=== PATIENT | male | born 1985 | race Caucasian/White ===

== ENCOUNTER 2024-12-12 11:03 | Outpatient (AMB) | payer MEDICAID, SELFPAY ==
--- NOTE | 2024-12-12 11:14 | HO.SPINEOV ---
Vital Signs 12/12/24 11:15 Height 6 ft Weight 205 lb BMI 27.8 Intake Visit Reasons: LBP Intake Note: Mr. Mojica is here today c/o Sciatica pain down Left leg. [employer] Required: No Allergies No Known Allergies Allergy (Verified 12/12/24 11:15) Physical Exam Vital Signs: BMI result Body Mass Index 27.8 Assessment & Plan Assessment & Plan (1) Lumbar radiculopathy: Code(s): M54.16 - Radiculopathy, lumbar region Category: Medical Plan Dear ADDIE Nails, Thank you for referring Jaya to our office today. He is a pleasant 39-year-old male who comes in today with a chief complaint of predominantly left leg pain. He reports this has been ongoing for the past 4 years. He identifies an initial inciting incident of -lifting at the gym in which he felt a pop in his low back. He feels that after some rest and physical therapy this issue resolved. Subsequently, he returned to lifting at the gym and had essentially the same thing happen a 2nd time. When describing the shooting pain down his left leg he runs his hand over the low back down the posterior buttocks and across the lateral thigh. He states that occasionally it will continue down to his lateral calf terminating before the foot. He denies any numbness/tingling/weakness associated with the pain. He reports that he has had injections into his piriformis muscle in the past which did provide him with temporary relief. Unfortunately, this series of injections is confounded by the fact that he was also injecting himself with peptides in an effort to self heal the injury. Therefore, it is not clear that the injection itself was actually helpful. He is not currently taking any medications for the pain, but was recently prescribed a course of prednisone by our colleagues at [facility]. PMH: Insomnia, piriformis muscle inflammation. Social hx: The patient does not smoke, reports no substance use. Medications: Ambien for sleep. Allergies: NKDA. Physical exam: The patient has 5/5 strength in his upper and lower extremities. He ambulates well and rises from a seated position without difficulty. He has no significant sensational deficits on examination. His reflexes are 2+ intact. (-) bilateral straight leg raise, (-) clonus, (-) Maradiaga's. Imaging review: MRI of the lumbar spine completed at [facility] shows moderate-severe left-sided, and mild-moderate right-sided foraminal stenosis at L4-5 due to a posterior disc bulge. There is also mild bilateral foraminal stenosis at L3-4. Impression: Jaya is a pleasant 39-year-old male who comes in today with a chief complaint of left leg pain. He reports this has been ongoing for the past 4 years and has wax/wane in intensity since his initial injury which occurred while lifting. His story and MRI are most consistent with an acute disc herniation which partially resolved. This may have occurred at both L3-4, and L4-5. I believe the bulk of his leg pain is likely coming from the moderate-severe left-sided foraminal stenosis at L4-5. This would best explain his symptoms. I encouraged him to follow up with [facility] to discuss the possibility of injections at this level. He is more than welcome to make a follow-up appointment with our office to discuss the possibility of foraminotomy or decompression at this level, but I encouraged him to pursue all potential conservative treatments before considering this. Thank you for allowing us to care for your patient. The total time spent with this visit with this patient was 45 minutes reviewing history, physical exam, MRI imaging review, and implementation of treatment plan or further diagnostic testing Bao Medina MD,PhD [facility] Coding Level of Care Code New Pt Level 4 (48665) Diagnoses Lumbar radiculopathy M54.16
[2024-12-12 11:15] VITALS: BMI 27.8
--- OUTSIDE RECORDS SUMMARY | 2024-12-12 11:46 | XMS_ITS | Data Portability ---
Author Organization [facility], [facility] Address [address] [place] [address] Care Team Providers Care Terminal Operations Manager Name Role Phone JUAN PABLOLAUREN MARTINEZ Primary Care Provider [facility] O rthopedic Surgeon SPINE AND SPORTS OTHER Assessment Encounter Date Assessment Date Assessment LastModified by Organization Details LastModified Time 09/07/2022 09/07/2022 After a discussion of treatment options, which included consideration of best practices and patient preferences, the following treatment plan and objectives were adopted: pkeough Not available 09/07/2022 11:12:00 05/18/2023 05/18/2023 After a discussion of treatment options, which included consideration of best practices and patient preferences, the following treatment plan and objectives were adopted: pkeough Not available 05/18/2023 10:50:24 11/20/2023 11/20/2023 After a discussion of treatment options, which included consideration of best practices and patient preferences, the following treatment plan and objectives were adopted: pkeough Not available 11/20/2023 14:29:31 03/05/2024 03/05/2024 After a discussion of treatment options, which included consideration of best practices and patient preferences, the following treatment plan and objectives were adopted: pkeough Not available 03/05/2024 15:14:21 10/03/2024 10/03/2024 After a discussion of treatment options, which included consideration of best practices and patient preferences, the following treatment plan and objectives were adopted: pkeough Not available 10/03/2024 11:10:58 Plan of Treatment Reminders Order Date Submit Date Provider Last Modified By Organization Details Last Modified Time Details Appointments None recorded. Lab HIV (1+2) antibodies, EIA, serum, reflex HIV-1 western blot (WB) 2021 [facility], [address] [place] [address], [id number], 18:06:30 RPR (rapid plasma reagin), serum 2021 [facility], [address] [place] [address], [id number], 09:45:33 CT + NG DNA, PCR, unspecified specimen 2021 [facility], [address] [place] [address], [id number], 13:55:54 hepatitis C virus Ab, serum 2021 [facility], [address] [place] [address], [id number], 18:06:37 HBsAg (hepatitis B surface Ag), serum 2021 [facility], [address] [place] [address], [id number], 18:06:43 testosteron e, bioavailabl e + free + total, serum 2021 [facility], [address] [place] [address], [address], 18:06:34 estradiol, serum 2021 [facility], [address] [place] [address], [address], 18:06:38 lh (luteinizin g hormone), serum 2021 [facility], [address] [place] [address], [id number], 10:43:33 igf-1 (insulin-li ke growth factor), serum 2021 [facility], [address] [place] [address], [address], 18:06:32 dhea, serum 2021 [facility], [address] [place] [address], [address], 18:06:41 lipid panel, serum 2021 [facility], [address] [place] [address], [address], 15:01:54 CMP, serum or plasma 2021 [facility], [address] [place] [address], [id number], 15:01:53 FSH (follicle-s timulating hormone), serum 2021 [facility], [address] [place] [address], [address], 10:43:33 CBC 2021 [facility], [address] [place] [address], [address], 12:48:09 Referral physical medicine and rehabilitat ion referral 2023 024 [facility] Geoff Persaud MD, [address], [place], [address], 5 11:13:00 Procedures None recorded. Surgeries None recorded. Imaging None recorded. Medication Orders zolpidem 10 mg tablet 2023 024 [id number], [address] [facility], [place], [address], 4 11:20:50 alprazolam 0.25 mg tablet 2023 024 [id number], [address] [place], [address], 4 15:15:52 tadalafil 10 mg tablet 2022 023 [facility], [address] [place], [address], 3 10:50:49 temazepam 7.5 mg capsule 2022 023 [id number] [address] [place], [address], 4 14:19:01 Patient TargetsNo targets recorded. Patient Instructions Encounter Date Encounter Id Patient Instructions Last Modified By Organization Details Last Modified Time 11/20/2023 [id number] Well Visit, Ages 18 to 65: Care Instructions [email or web address] Not available 11/20/2023 14:34:20 Reason for Referral Physical Medicine And Rehabi litation Referral for Lumbar radiculopathy Referring Physician: Lauren Meeks, Family Medicine, Encounter Date: 10/03/2024 Results Created Date Observation Date Name Description Value Unit Range Abnormal Flag Note LastModifiedBy Organization Detail LastModifiedTime 09/14/2009/14/2022 CBC WBC 3.53 K/? ? ?L 4.23-9 .07 low Not Available [address], [address], 09/14/2022 12:48:09 09/14/20 22 09/14/2022 CBC RBC 4.96 M/? ? ?L 4.63-6 .08 Not Available [address], [address], 09/14/2022 12:48:09 09/14/20 22 09/14/2022 CBC HGB 16.0 g/dL 13.7-1 7.5 Not Available [address], [address], 09/14/2022 12:48:09 09/14/20 22 09/14/2022 CBC HCT 48.4 % 40.1-5 1.0 Not Available [address], [address], 09/14/2022 12:48:09 09/14/20 22 09/14/2022 CBC MCV 97.6 fL 79.0-9 2.2 high Not Available [address], [address], 09/14/2022 12:48:09 09/14/20 22 09/14/2022 CBC MCH 32.3 pg 25.7-3 2.2 high Not Available [address], [address], 09/14/2022 12:48:09 09/14/20 22 09/14/2022 CBC MCHC 33.1 g/dL 32.3-3 6.5 Not Available [address], [address], 09/14/2022 12:48:09 09/14/20 22 09/14/2022 CBC plt 172 K/? ? ?L 163-33 7 Not Available [address], [address], 09/14/2022 12:48:09 09/14/20 22 09/14/2022 CBC MPV 10.9 fL 9.4-12 .4 Not Available [address], [address], 09/14/2022 12:48:09 09/14/20 22 09/14/2022 CBC neut% 45.4 % 34.0-6 7.9 Not Available [address], [address], 09/14/2022 12:48:09 09/14/20 22 09/14/2022 CBC neut# 1.60 1.78-5 .38 low Not Available [address], [address], 09/14/2022 12:48:09 09/14/20 22 09/14/2022 CBC lymph % 35.4 % 21.8-5 3.1 Not Available [address], [address], 09/14/2022 12:48:09 09/14/20 22 09/14/2022 CBC lymph # 1.25 K/? ? ?L 1.32-3 .57 low Not Available [address], [address], 09/14/2022 12:48:09 09/14/20 22 09/14/2022 CBC mono% 11.3 % 5.3-12 .2 Not Available [address], [address], 09/14/2022 12:48:09 09/14/20 22 09/14/2022 CBC mono# 0.40 0.30-0 .82 Not Available [address], [address], 09/14/2022 12:48:09 09/14/20 22 09/14/2022 CBC eo% 6.5 % 0.8-7. 0 Not Available [address], [address], 09/14/2022 12:48:09 09/14/20 22 09/14/2022 CBC eo# 0.23 0.04-0 .54 Not Available [address], [address], 09/14/2022 12:48:09 09/14/20 22 09/14/2022 CBC baso% 1.1 % 0.2-1. 2 Not Available [address], [address], 09/14/2022 12:48:09 09/14/20 22 09/14/2022 CBC baso# 0.04 0.00-0 .08 Not Available [address], [address], 09/14/2022 12:48:09 09/14/20 22 09/14/2022 CBC RDW-CV 12.9 % 11.6-1 4.4 Not Available [address], [address], 09/14/2022 12:48:09 09/14/20 22 09/14/2022 CBC Ig% 0.300 % 0.000- 1.500 Ig % >0.5 Indic ates possi ble Left Shift Not Available [address], [address], 09/14/2022 12:48:09 09/14/20 22 09/14/2022 CBC Ig# 0.010 0.000- 0.093 Not Available [address], [address], 09/14/2022 12:48:09 09/14/20 22 09/14/2022 CBC NRBC% 0.0 % 0.0-0. 2 Not Available [address], [address], 09/14/2022 12:48:09 09/14/20 22 09/14/2022 CBC NRBC# 0.000 0.000- 0.012 Not Available [address], [address], 09/14/2022 12:48:09 09/14/20 22 09/14/2022 COMP. METAB OLIC PANEL glucose 88 mg/dL 70-100 Not Available [address], [address], 09/14/2022 15:01:53 09/14/20 22 09/14/2022 COMP. METAB OLIC PANEL BUN 18 mg/dL 7-18 Not Available [address], [address], 09/14/2022 15:01:53 09/14/20 22 09/14/2022 COMP. METAB OLIC PANEL creatinine 1.1 mg/dL 0.8-1. 3 Not Available [address], [address], 09/14/2022 15:01:53 09/14/20 22 09/14/2022 COMP. METAB OLIC PANEL B/C 16.4 ratio Not Available [address], [address], 09/14/2022 15:01:53 09/14/20 22 09/14/2022 COMP. METAB OLIC PANEL GFR >=60ML /MIN mL/mi n normal >=60m L/min - Dyana l or midly reduc ed <60mL /min- Decre ased kidne y funct ion <15mL /min - Kidne y failu re [facility] calcu lates estim ated Glome rular Filtr ation Rate (eGFR ) using the Chron ic Kidne y Disea se Epide miolo gy Colla borat ion (CKD- EPI) Equat ion (Ezekiel r et. al 2020) as recom elysia d by the Natio nal Kidne y Found ation . eGFR is based on age, serum creat inine , and sex. CKD-E PI does not calcu late eGFR by race, does not apply to child kian (age <18 years ), and shoul d not be used in pregn romy. Not Available [address], [address], 09/14/2022 15:01:53 09/14/20 22 09/14/2022 COMP. METAB OLIC PANEL sodium 139 mmol/ L 136-14 5 Not Available [address], [address], 09/14/2022 15:01:53 09/14/20 22 09/14/2022 COMP. METAB OLIC PANEL potassium 4.3 mmol/ L 3.5-5. 1 Not Available [address], 78[address], 09/14/2022 15:01:53 09/14/20 22 09/14/2022 COMP. METAB OLIC PANEL chloride 100 mmol/ L 96-107 Not Available [address], [address], 09/14/2022 15:01:53 09/14/20 22 09/14/2022 COMP. METAB OLIC PANEL anion gap 10.4 5.0-15 .0 Not Available [address], [address], 09/14/2022 15:01:53 09/14/20 22 09/14/2022 COMP. METAB OLIC PANEL CO2 29 mmol/ L 21-32 Not Available [address], 180[address], 09/14/2022 15:01:53 09/14/20 22 09/14/2022 COMP. METAB OLIC PANEL calcium 9.2 mg/dL 8.5-10 .3 Not Available [address], 7[address], 09/14/2022 15:01:53 09/14/20 22 09/14/2022 COMP. METAB OLIC PANEL total protein 7.3 g/dL 6.4-8. 2 Not Available [address], [address], 09/14/2022 15:01:53 09/14/20 22 09/14/2022 COMP. METAB OLIC PANEL albumin 4.2 g/dL 3.4-5. 0 Not Available [address], [address], 09/14/2022 15:01:53 09/14/20 22 09/14/2022 COMP. METAB OLIC PANEL globulin 3.1 g/dL Not Available [address], 29[address], 09/14/2022 15:01:53 09/14/20 22 09/14/2022 COMP. METAB OLIC PANEL A/G 1.4 ratio 0.8-2. 0 Not Available [address], [address], 09/14/2022 15:01:53 09/14/20 22 09/14/2022 COMP. METAB OLIC PANEL total bilirubin 0.20 mg/dL 0.00-1 .00 Not Available [address], 8[address], 09/14/2022 15:01:53 09/14/20 22 09/14/2022 COMP. METAB OLIC PANEL AST 44 U/L 0-37 high Not Available [address], 10[address], 09/14/2022 15:01:53 09/14/20 22 09/14/2022 COMP. METAB OLIC PANEL ALT 56 U/L 6-63 Not Available [address], [address]16, 09/14/2022 15:01:53 09/14/20 22 09/14/2022 COMP. METAB OLIC PANEL alk. phos. 82 U/L 50-136 Not Available [address], [address], 09/14/2022 15:01:53 09/14/20 22 09/14/2022 LIPID PANEL cholesterol 282 mg/dL LIPS= Speci men Sligh tly Lipem ic. Chem Resul ts may be effec bailey. <200 mg/dl Juan Carlos able 200-2 39 mg/dl Borde rline High >240 mg/dl High Not Available [address], [address], 09/14/2022 15:01:54 09/14/20 22 09/14/2022 LIPID PANEL triglyceride s 186 mg/dL <150 mg/dL Dyana l 150-1 99 mg/dL Janade rline High 200-4 99 mg/dL High >500 mg/dL Very High Not Available [address], [address], 09/14/2022 15:01:54 09/14/20 22 09/14/2022 LIPID PANEL direct HDL 75 mg/dL <40 mg/dl - Major Risk for CHD >60 mg/dl - Negat richard Risk for CHD Not Available [address], [address], 09/14/2022 15:01:54 09/14/20 22 09/14/2022 LDL - CALCU LATED LDL - calculated 169.8 RISK CATEG ORY LDL GOAL _ CHD or CHD Risk Equiv alent s <100 mg/dl (10-y ear risk >20%) 2+ Risk Facto rs <130 mg/dl (10-y ear risk <= 20%) 0-1 Risk Facto r? <160 mg/dl ? Almos t all peopl e with 0-1 risk facto r have a 10 year risk <10%, thus 10 year risk asses ment in peopl e with 0-1 risk facto r is not neces bailey. Not Available [address], [address], 09/14/2022 15:01:55 09/14/20 22 09/15/2022 RPR RPR NON-RE ACTIVE nonrea ctive Not Available [address], [address], 09/15/2022 09:45:33 09/14/20 22 09/16/2022 FSH FSH 4.6 mIU/m L Male: 1.0 - 42.5 mIU/m L Femal e Ovula ting: Folli cular Phase : 2.7 - 15.4 mIU/m L Peak: 3.9 - 22.0 mIU/m L Lutea l Phase : 1.0 - 14.4 mIU/m L Postm enopa usal: 25.0 - 160.0 mIU/m L Not Available [address], [address], 09/16/2022 10:43:33 09/14/20 22 09/16/2022 LH LH 5.4 mIU/m L Male: 1.7 - 11.2 mIU/m L Femal e Ovula ting: Folli cular Phase : 1.7 - 13.3 mIU/m L Peak: 4.1 - 68.7 mIU/m L Lutea l Phase : 0.5 - 19.8 mIU/m L Postm enopa usal: 14.4 - 62.2 mIU/m L Not Available [address], [address], 09/16/2022 10:43:33 09/14/20 22 09/16/2022 CHLAM YDIA/ GC, URINE HERMAN N. gonorrhoeae GC NEG negati ve normal Not Available [address], [address], 09/16/2022 13:55:54 09/14/20 22 09/16/2022 CHLAM YDIA/ GC, URINE HERMAN C. trachomatis CT NEG negati ve normal Not Available [address], [address], 09/16/2022 13:55:54 09/14/20 22 09/23/2022 HIV 1/2 ANTIG EN/AN TIBOD Y,FOU RTH GENER ATION W/RFL HIV Ag/Ab, 4TH gen NON-RE ACTIVE non-re active normal HIV-1 antig en and HIV-1 /HIV- 2 antib odies were not detec bailey. There is no labor atory evide nce of HIV infec tion. PLEAS E NOTE: This infor alfredo munoz has been discl osed to you from recor ds whose confi denti ality may be prote cted by state law. If your state requi res such prote ction , then the state law prohi bits you from dashateri noris any furth er discl osure of the infor matio n witho ut the speci fic writt en conse nt of the perso n to whom it perta ins, or as other ramirez permi tted by law. A gener al autho rizat ion for the relea se of medic al or other infor matio n is NOT suffi cient for this purpo se. For addit ional infor matio n pleas e refer to http: //[facility] stdia gnost ics.c om/fa q/FAQ 106 (This link is being provi ded for infor matio nal/ educa angelita l purpo ses only. ) The perfo rmanc e of this assay has not been clini jorge valid ated in patie nts less than 2 years old. Not Available [facility] [address], [address], 09/23/2022 18:06:30 09/14/20 22 09/23/2022 IGF 1, LC/MS igf 1, lc/MS 173 NG/mL 53-331 Not Available [facility] [address], [address], 09/23/2022 18:06:32 09/14/20 22 09/23/2022 IGF 1, LC/MS Z score (male) 0.4 SD -2.0 - +2.0 This test was devel oped and its rubin tical perfo rmanc e honorio cteri stics have been deter mined by [facility] . It has not been clear ed or appro anamaria by FDA. This assay has been valid ated pursu ant to the CLIA regul ation s and is used for clini duran purpo ses. Not Available [facility] [address], [address], 09/23/2022 18:06:32 09/14/20 22 09/23/2022 TESTO STERO NE, FREE, BIOAV AILAB LE AND TOTAL , MS testosterone , total, MS 487 NG/dL 250-11 00 For addit ional infor july kc e refer to http: //[facility] stdia gnost ics.c om/fa q/ Total Testo stero neLCM SMSFA Q165 (This link is being provi ded for infor alfredo lucas/ educa angelita l purpo ses only. ) This test was devel oped and its rubin tical perfo rmanc e honorio cteri stics have been deter mined by [facility] [place], [place]. It has not been clear ed or appro anamaria by the U.S. Food and Drug Admin istra tion. This assay has been valid ated pursu ant to the CLIA regul ation s and is used for clini duran purpo ses. Not Available [facility] [address], [address], 09/23/2022 18:06:34 09/14/20 22 09/23/2022 TESTO STERO NE, FREE, BIOAV AILAB LE AND TOTAL , MS testosterone , free 73.6 pg/mL 46.0-2 24.0 Not Available [facility] [address], [address], 09/23/2022 18:06:34 09/14/20 22 09/23/2022 TESTO STERO NE, FREE, BIOAV AILAB LE AND TOTAL , MS testosterone ,bioavailabl e 170.5 NG/dL 110.0- 575.0 Not Available [facility] [address], [address], 09/23/2022 18:06:34 09/14/20 22 09/23/2022 TESTO STERO NE, FREE, BIOAV AILAB LE AND TOTAL , MS sex hormone binding globulin 27 nmol/ L 10-50 Not Available [facility] [address], [place], [address], 09/23/2022 18:06:34 09/14/20 22 09/23/2022 TESTO STERO NE, FREE, BIOAV AILAB LE AND TOTAL , MS albumin 5.1 g/dL 3.6-5. 1 Not Available [facility] [address], [place], [address], 09/23/2022 18:06:34 09/14/20 22 09/23/2022 HEPAT ITIS C AB W/REF L TO HCV RNA, QN, PCR hepatitis C antibody NON-RE ACTIVE non-re active normal Not Available [facility] [address], [place], [address], 09/23/2022 18:06:36 09/14/20 22 09/23/2022 HEPAT ITIS C AB W/REF L TO HCV RNA, QN, PCR index 0.02 <1.00 normal HCV antib laura was non-r eacti ve. There is no labor atory evide nce of HCV infec tion. In most cases , no furth er actio n is requi red. Howev er, if recen t HCV expos ure is suspe cted, a test for HCV RNA (test code 10431 ) is sugge sted. For addit ional infor alfredo funez e refer to http: //[facility] stdia gnost ics.c om/fa q/FAQ 22v1 (This link is being provi ded for infor alfredo lucas/ educa angelita l purpo ses only. ) Not Available [facility] [address], [place], [address], 09/23/2022 18:06:36 09/14/20 22 09/23/2022 ESTRA DIOL estradiol 19 pg/mL < or = 39 normal Refer ence range estab lishe d on post- puber gayatri patie nt popul ation . No pre-p ubert al refer ence range estab lishe d using this assay . For any patie nts for whom low Estra diol level s are antic ipate d (e.g. males , pre-p ubert al child kian and hypog onada l/pos t-men opaus al femal es), the [facility] Estra diol, Ultra sensi tive, LCMSM S assay is recom elysia d (orde r code 54777 ). July e note: patie nts being treat ed with the drug fulve stran t (Fasl odex( R)) have demon strat ed signi fican t inter feren ce in immun oassa y metho ds for estra diol measu remen t. The cross react ivity could lead to false ly eleva bailey estra diol test resul ts leadi ng to an inapp ropri ate clini duran asses sment of estro gen statu s. [facility] order code [id number] -Estr adiol , Ultra sensi tive LC/MS /MS demon strat es negli gible cross react ivity with fulve stran t. Not Available [facility] [address], [address], 09/23/2022 18:06:38 09/14/20 22 09/23/2022 DHEA, UNCON JUGAT ED DHEA, unconjugated 293 NG/dL 147-17 60 This test was devel oped and its rubin tical perfo rmanc e honorio cteri stics have been deter mined by [facility] Vance henning . It has not been clear ed or appro anamaria by FDA. This assay has been valid ated pursu ant to the CLIA regul ation s and is used for clini duran purpo ses. Not Available [facility] [address], [address], 09/23/2022 18:06:40 09/14/20 22 09/23/2022 HEPAT ITIS B SURFA CE ANTIG EN W/REF L CONFI RM hepatitis B surface antigen NON-RE ACTIVE non-re active normal Not Available [facility] [address], [place], [address], 09/23/2022 18:06:42 02/27/20 24 02/28/2024 HIV 1/2 ANTIG EN/AN TIBOD Y,FOU RTH GENER ATION W/RFL HIV Ag/Ab, 4TH gen NON-RE ACTIVE non-re active normal HIV-1 antig en and HIV-1 /HIV- 2 antib odies were not detec bailey. There is no labor atory evide nce of HIV infec tion. PLEAS E NOTE: This infor matio n has been discl osed to you from recor ds whose confi denti ality may be prote cted by state law. If your state requi res such prote ction , then the state law prohi bits you from topher verduzco furth er discl osure of the infor matio n witho ut the speci fic writt en conse nt of the perso n to whom it perta ins, or as other ramirez permi tted by law. A gener al autho rizat ion for the relea se of medic al or other infor matio n is NOT suffi cient for this purpo se. For addit ional infor matio n pleas e refer to http: //[facility] std[facility] gn[facility].c om/fa q/FAQ 106 (This link is being provi ded for infor matio nal/ educa angelita l purpo ses only. ) The perfo rmanc e of this assay has not been clini jorge valid ated in patie nts less than 2 years old. Not Available [facility] [address], [place], [address], 02/28/2024 10:33:00 02/27/20 24 02/28/2024 HEPAT ITIS B SURFA CE ANTIG EN W/REF L CONFI RM hepatitis B surface antigen NON-RE ACTIVE non-re active normal For addit ional infor alfredo munoz, july e refer to http: //[facility] mun[facility] stdia gnost ics.c om/fa q/FAQ 202 (This link is being provi ded for infor matio nal/ educa angelita l purpo ses only. ) Not Available [facility] [address], [address], 02/28/2024 10:33:02 02/27/20 24 02/28/2024 HEPAT ITIS C AB W/REF L TO HCV RNA, QN, PCR hepatitis C antibody NON-RE ACTIVE non-re active normal HCV antib laura was non-r eacti ve. There is no labor atory evide nce of HCV infec tion. In most cases , no furth er actio n is requi red. Howev er, if recen t HCV expos ure is suspe cted, a test for HCV RNA (test code 93133 ) is sugge sted. For addit ional infor alfredo n july e refer to http: //[facility] munoz.[facility] stdia gnost ics.c om/fa q/FAQ 22v1 (This link is being provi ded for infor matio nal/ educa angelita l purpo ses only. ) Not Available [facility] [address], [address], 02/28/2024 10:33:03 02/27/20 24 02/29/2024 CHLAM YDIA/ GC, URINE HERMAN N. gonorrhoeae GC neg negati ve normal Not Available [address], [address], 02/29/2024 16:01:51 02/27/20 24 02/29/2024 CHLAM YDIA/ GC, URINE HERMAN C. trachomatis CT neg negati ve normal Not Available [address], [address], 02/29/2024 16:01:51 03/05/20 24 03/06/2024 COMP. METAB OLIC PANEL glucose 90 mg/dL 70-100 Not Available [address], [address], 03/06/2024 15:00:40 03/05/20 24 03/06/2024 COMP. METAB OLIC PANEL BUN 13 mg/dL 7-18 Not Available [address], [address], 03/06/2024 15:00:40 03/05/20 24 03/06/2024 COMP. METAB OLIC PANEL creatinine 0.9 mg/dL 0.8-1. 3 Not Available [address], [address], 03/06/2024 15:00:40 03/05/20 24 03/06/2024 COMP. METAB OLIC PANEL B/C 14.4 ratio Not Available [address], [address], 03/06/2024 15:00:40 03/05/20 24 03/06/2024 COMP. METAB OLIC PANEL GFR >=60ML /MIN mL/mi n normal >=60m L/min - Dyana l or midly reduc ed <60mL /min- Decre ased kidne y funct ion <15mL /min - Kidne y failu re [facility] calcu lates estim ated Glome rular Filtr ation Rate (eGFR ) using the Chron ic Kidne y Disea se Epide miolo gy Colla borat ion (CKD- EPI) Equat ion (Ezekiel r et. al 2020) as recom elysia d by the Natio nal Kidne y Found ation . eGFR is based on age, serum creat inine , and sex. CKD-E PI does not calcu late eGFR by race, does not apply to child kian (age <18 years ), and shoul d not be used in pregn romy. Not Available [address], [address], 03/06/2024 15:00:40 03/05/20 24 03/06/2024 COMP. METAB OLIC PANEL sodium 140 mmol/ L 136-14 5 Not Available [address], [address], 03/06/2024 15:00:40 03/05/20 24 03/06/2024 COMP. METAB OLIC PANEL potassium 4.7 mmol/ L 3.5-5. 1 Not Available [address], [address], 03/06/2024 15:00:40 03/05/20 24 03/06/2024 COMP. METAB OLIC PANEL chloride 99 mmol/ L 96-107 Not Available [address], [address], 03/06/2024 15:00:40 03/05/20 24 03/06/2024 COMP. METAB OLIC PANEL anion gap 14.5 5.0-15 .0 Not Available [address], [address], 03/06/2024 15:00:40 03/05/20 24 03/06/2024 COMP. METAB OLIC PANEL CO2 27 mmol/ L 21-32 Not Available [address], [address], 03/06/2024 15:00:40 03/05/20 24 03/06/2024 COMP. METAB OLIC PANEL calcium 9.1 mg/dL 8.5-10 .3 Not Available [address], [id number], 03/06/2024 15:00:40 03/05/20 24 03/06/2024 COMP. METAB OLIC PANEL total protein 7.2 g/dL 6.4-8. 2 Not Available [address], [id number], 03/06/2024 15:00:40 03/05/20 24 03/06/2024 COMP. METAB OLIC PANEL albumin 4.0 g/dL 3.4-5. 0 Not Available [address], [address], 03/06/2024 15:00:40 03/05/20 24 03/06/2024 COMP. METAB OLIC PANEL globulin 3.2 g/dL Not Available [address], [address], 03/06/2024 15:00:40 03/05/20 24 03/06/2024 COMP. METAB OLIC PANEL A/G 1.3 ratio 0.8-2. 0 Not Available [address], [address], 03/06/2024 15:00:40 03/05/20 24 03/06/2024 COMP. METAB OLIC PANEL total bilirubin 0.30 mg/dL 0.00-1 .00 Not Available [address], [address], 03/06/2024 15:00:40 03/05/20 24 03/06/2024 COMP. METAB OLIC PANEL AST 45 U/L 0-37 high Not Available [address], [address], 03/06/2024 15:00:40 03/05/20 24 03/06/2024 COMP. METAB OLIC PANEL ALT 51 U/L 6-63 Not Available [address], [address], 03/06/2024 15:00:40 03/05/20 24 03/06/2024 COMP. METAB OLIC PANEL alk. phos. 66 U/L 50-136 Not Available [address], [address], 03/06/2024 15:00:40 03/05/20 24 03/06/2024 LIPID PANEL cholesterol 256 mg/dL <200 mg/dl Juan Carlos able 200-2 39 mg/dl Borde rline High >240 mg/dl High Not Available [address], [address], 03/06/2024 15:00:42 03/05/20 24 03/06/2024 LIPID PANEL triglyceride s 95 mg/dL <150 mg/dL Dyana l 150-1 99 mg/dL Borde rline High 200-4 99 mg/dL High >500 mg/dL Very High Not Available [address], [address], 03/06/2024 15:00:42 03/05/20 24 03/06/2024 LIPID PANEL direct HDL 72 mg/dL <40 mg/dl - Major Risk for CHD >60 mg/dl - Negat richard Risk for CHD Not Available [address], [address], 03/06/2024 15:00:42 03/05/20 24 03/06/2024 DIREC T LDL direct LDL 146 mg/dL RISK CATEG ORY LDL GOAL _ CHD or CHD Risk Equiv alent s <100 mg/dl (10-y ear risk >20%) 2+ Risk Facto rs <130 mg/dl (10-y ear risk <= 20%) 0-1 Risk Facto r? <160 mg/dl ? Almos t all peopl e with 0-1 risk facto r have a 10 year risk <10%, thus 10 year risk asses ment in peopl e with 0-1 risk facto r is not neces bailey. Not Available [address], [address], 03/06/2024 15:00:44 03/05/20 24 03/07/2024 RPR RPR NON-RE ACTIVE nonrea ctive Not Available [address], [address], 03/07/2024 11:34:28 08/29/20 22 08/29/2022 xr knee 4 or more views (righ t) This image report has been auto-f inaliz ed and has not been read by a Radiol ogist. Interp retati on has been includ ed in the provid er encoun ter note for this date of keara lagos. Final result KALEY Albino DEWEY O [facility] [address] , [place], [address], 08/29/2022 16:33:17 09/07/20 22 09/07/2022 MRI knee witho ut contr ast (righ t) MRI KNEE WITHOU T CONTRA ST (RIGHT ) TECHNI QUE: Multi- sequen ce, multi- planar MRI of the knee withou t intrav enous contra st. COMPAR DANNY: XR KNEE 4 OR MORE VIEWS (RIGHT ) ct FINDIN GS: Medial Compar tment: No menisc us tear. Focal full-t hickne ss cartil age loss and probab le cartil age delami nation at the weight bearin g medial femora l condyl e with underl iwona subcho ndral marrow edema. Latera l Compar tment: No menisc al tear. No cartil age defect or subcho ndral edema. Patell ofemor al Compar tment: No cartil age defect or subcho ndral edema. Tendon s: Susan ceps tendon is intact . There is tendin opathy and low-gr jackelyn partia l tearin g of the proxim al patell ar tendon at its inferi or patell ar pole attach ment. The poplit eus tendon is intact . There is edema of the suprap atella r fat. Ligame nts: Increa sed intras ubstan ce signal of the ACL in keepin g with prior injury . The PCL is intact . Collat eral ligame nts are intact . Bones: No fractu re, osteon ecrosi s, or focal lesion . Joint: No joint effusi on, synovi tis, or Prince' s cyst. IMPRES MAYNOR: 1. Tendin opathy and low-gr jackelyn partia l tearin g of the proxim al patell ar tendon . 2. Focal full-t hickne ss cartil age loss and probab le cartil age delami nation at the medial femora l condyl e with mild underl iwona subcho ndral marrow edema. 3. Increa sed intras ubstan ce signal of the ACL sugges ting a remote ACL injury . Electr onical ly Signed by: Dr. Jose solorio on 022 8:45 PM Interp reted by: Jose solorio MD Signed by: Jose solorio MD 2 CC Recipi ents: Nellycathryn danielle Charlotte Vance , DO - In Basket (autho rizing provid er) Final result Histor y of sudden onset of sharp pain in Rt knee while runnin g April 2022. Curren tly when he bends Right knee he feels sensat ion of swelli ng and tingli ng distal patell ar tendon . He compla ins of pain just below Right patell a when going up and down stairs . No surger y. No inject ions. Routin e Right knee. Xrays in PACS. Repeat ed Cor T2FS for motion correc tion. KALEY Posada FURCOL O [facility] [address] [facility], [place], [address], 09/08/2022 08:41:43 03/15/20 23 03/13/2023 MRI lumba r spine (neur o) witho ut contr ast MRI LUMBAR SPINE (NEURO ) WITHOU T CONTRA ST TECHNI QUE: MRI LUMBAR SPINE (NEURO ) WITHOU T CONTRA ST Multi- sequen ce, multi- planar MRI of the lumbar spine was perfor med withou t intrav enous contra st. COMPAR DANNY: Lumbar spine MRI 018. FINDIN GS: LUMBAR SPINE: Alignm ent and Verteb dallas: Normal alignm ent. No compre ssion fractu re. Marrow : No bone marrow replac ing lesion . Discs and Endpla raymundo: Mild disc space narrow ing L3-L4. Conus: Normal . Soft Tissue s: Normal . No prever tebral edema. Other Findin gs: None. Findin gs by level: T12-L1 : Normal . No spinal or forami nal stenos is. L1-L2: Normal . No spinal or forami nal stenos is. L2-L3: Normal . No spinal or forami nal stenos is. L3-L4: Diffus e disc bulge. Mild bilate ral forami nal stenos is. No signif icant centra l spinal canal stenos is. Narrow ing of both subart icular zones. L4-L5: Diffus e disc bulge. Omentu m flavum hypert rophy on the left. Mild bilate ral forami nal stenos is with narrow ing of the subart icular zones. No signif icant centra l spinal canal stenos is. L5-S1: Normal . No spinal or forami nal stenos is. Findin gs appear simila r to 018. IMPRES MAYNOR: Minima l lumbar spine degene rative change s as descri bed, withou t eviden ce of signif icant centra l spinal canal stenos is or high-g rade forami nal stenos is, simila r to 018. Electr onical ly Signed by: Dr. Mitch haro on 023 7:37 AM Interp reted by: Mitch haro MD Signed by: Mitch haro MD 3 Final result Histor y of DDD and arthri tis. He compla ins of pain focuse d Left lower lumbar region . He compla ins of burnin g/ting ling from Left buttoc k down Left leg to Left foot. Sympto ms are episod ic and began 3 years ago. Most recent episod e began 4 months ago. He resume d perfor cade squats while liftin g weight s and sympto ms return ed after that. No surger y. Histor y of inject ions with most recent 1.5-2 yrs ago. Routin e Lumbar spine. Priors in PACS. Low back pain , assess for interv al change s, HNP with NFS or nerve root imping ement left lower levels . KALEY Posada FURCOL Luis Felipe tatum [facility] [address] [facility], [place], [address], 03/15/2023 09:09:46 05/13/20 23 05/09/2023 xr shoul alondra 2 or more views (left ) XR SHOULD ER 2 OR MORE VIEWS (LEFT) COMPAR DANNY: None FINDIN GS: BONE: No acute fractu re or disloc ation. GLENOH UMERAL JOINT: Modera te joint space narrow ing with subcho ndral sclero sis and bony prolif erativ e change . ACROMI OCLAVI CULAR JOINT: Mild joint space narrow ing with bony spurri ng. OTHER: No soft tissue swelli ng. IMPRES MAYNOR: Modera te glenoh umeral and mild acromi oclavi cular joint osteoa rthrit is. Electr onical ly Signed by: Dr. Yordan Long on 023 2:15 PM Interp reted by: Yordan Long MD Signed by: Yordan Long MD 3 Final result Chroni c left should er pain with decrea sed ROM. No known trauma . SEG KALEY L FURCOL O [facility] [address] [place], [address], 05/14/2023 11:21:34 Result Notes None recorded. Problems Name Problem SNOMED Code Status Onset Date Resolution Date Notes Provider Name and Address Organization Details Recorded Time Insomnia 535669816 Active Lauren Meeks NP [address] [place] [address], [phone] , [facility] 6 10:29:46 Anxiety disorder 735641527 Active 017 Lauren Meeks NP [address] [place] [address], [phone] , [facility] 7 11:54:01 Low back pain 652727869 Active 021 Natalie Hartley DNP [address] [place] [address], [phone] , [facility] 1 14:54:15 Problem Notes None recorded. Procedures Surgical History None recorded. Imaging Results Imaging Date Name Status LastModified by Organiz ation Details LastModified Time 08/29/2022 xr knee 4 or more views (right) completed [facility] [address] [place] [address], [id number], 08/29/2022 16:33:17 09/07/2022 MRI knee without contrast (right) completed [facility] [address] [place] [address], [address], 09/08/2022 08:41:43 03/13/2023 MRI lumbar spine (neuro) without contrast completed [facility] [address] [place] [address], [address], 03/15/2023 09:09:46 05/09/2023 xr shoulder 2 or more views (left) completed [facility] [address] [place] [address], [id number], 05/14/2023 11:21:34 Procedure Notes None recorded. Medical Equipment None Reported. Allergies No known drug allergies Medications Name Sig Start Date Stop Date Status Note LastModified by Organization Details LastModified Time zolpidem tartrate 10 mg tabs active Not Available Not Available N ot Available sulfacetam abdoulaye sodium 10 % lotn active Not Available Not Available No t Available cyclobenza nestor 10 mg tablet TAKE 1 TABLET BY MOUTH 3 TIMES A DAY NEEDED FOR SPASM active Not Available Not Available No t Available sildenafil 50 mg tablet active Not Available Not Available Not Available cetirizine 10 mg tablet TAKE 1 TABLET BY MOUTH EVERY DAY IN MORNING PRN active Not Available Not Available No t Available valacyclov ir 1 gram tablet TAKE 2 TABLETS BY MOUTH EVERY 12 HOURS active Not Available Not Available No t Available hydrocodon e 5 mg-acetami nophen 325 mg tablet TAKE 1 TABLET BY MOUTH EVERY 6 HOURS NEEDED FOR PAIN 07/20 completed not taken 1tt Not Available Not Available Not Available minocyclin e 100 mg capsule TAKE 1 CAPSULE BY MOUTH TWICE A DAY WITH FOOD AND A FULL GLASS OF WATER, WEAR SUNSCREEN active Not Available Not Available No t Available prednisone 20 mg tablet TAKE 2 TABLETS BY MOUTH FOR 5 DAYS THEN DISCONTIN UE active Not Available Not Available No t Available clonazepam 0.5 mg tablet TAKE 1 TABLET BY MOUTH EVERY DAY NEEDED 04/03 completed Not Available Not Available Not Available sulfacetam abdoulaye sodium (acne) 10 % lotion (suspensio n) APPLY TO ACNE PRONE AREAS T WICE DAILY 01/05 completed pt is not using this 04-26- 7 KB Not Available Not Available Not Available triamcinol one acetonide 0.1 % topical cream APPLY TOPICALLY TO AFFECTED AREA ON ARMS AND NECK TWICE A DAY. STOP WHEN CLEAR 05/18 completed Not Available Not Available Not Available temazepam 7.5 mg capsule Take 1-2 caps po qhs as needed 11/20 completed Not Available Not Available Not Available amoxicilli n 875 mg tablet TAKE 1 TABLET BY MOUTH 2 TIMES A DAY FOR 7 DAYS 04/01 completed Not Available Not Available Not Available alprazolam 0.25 mg tablet TAKE 1-2 TABS AN HOUR PRIOR TO FLIGHTS active Not Available Not Available No t Available lorazepam 0.5 mg tablet ONE OR TWO TAB BY MOUTH PRIOR TO PROCEDURE (LUMBAR INJECTION ) 05/18 completed Not Available Not Available Not Available naproxen sodium 550 mg tablet TAKE 1 TABLET BY MOUTH TWICE A DAY NEEDED FOR PAIN active Not Available Not Available No t Available tacrolimus 0.1 % topical ointment APPLY TO FACE TWICE A DAY NEEDED FOR FLARES, ALTERNATI NG WITH STEROID active Not Available Not Available No t Available triamcinol one acetonide 55 mcg nasal spray aerosol SPRAY 2 SPRAYS BY INTRANASA L ROUTE EVERY DAY 05/18 completed Not Available Not Available Not Available indomethac in 25 mg capsule ONE CAP BY MOUTH THREE TIMES A DAY FOR 5 DAYS WITH FOOD, THEN OFF FOR 2 DAYS, MAY REPEAT IF NEEDED 08/08 completed Not Available Not Available Not Available mometasone 50 mcg/actuat ion nasal spray [place] 2 sprays every day by intranasa l route as directed. 11/20 completed Not Available Not Available Not Available gabapentin 300 mg capsule ONE CAPSULE BY MOUTH EVERY NIGHT FOR 7 DAYS THEN TWO TABLETS DAILY *NEED INS 04/03 completed Not Available Not Available Not Available etodolac 400 mg tablet TAKE 1 TABLET(S) TWICE A DAY BY ORAL ROUTE DIRECTED. 08/08 completed Not Available Not Available Not Available hydroxyzin e HCl 25 mg tablet TAKE 1 TABLET DAilY BY ORAL ROUTE NEEDED. 01/05 completed 7 uses prn few days a week, TK Not Available Not Available Not Available lorazepam 1 mg tablet TAKE 1 TAB, 1 HOUR PRIOR TO PROCDURE, MAY REPEAT X 1 03/05 completed Not Available Not Available Not Available azelastine 137 mcg (0.1 %) nasal spray SPRAY 2 SPRAYS INTO EACH NOSTRIL TWICE A DAY PRN 09/21 completed Not Available Not Available Not Available zolpidem 10 mg tablet TAKE 1 TABLET BY MOUTH EVERYDAY AT BEDTIME active Not Available Not Available No t Available ketoconazo le 2 % topical cream APPLY TO FACE TWICE A DAY NEEDED active Not Available Not Available No t Available fluocinoni de 0.05 % topical cream APPLY TO CHEST TWICE A DAY NEEDED DECREASE IMPROVE PRN active prn Not Available Not Available No t Available fluticason e propionate 50 mcg/actuat ion nasal spray,susp ension active Not Available Not Available Not Available neomycin-p olymyxin-h ydrocort 3.5 mg-10,000 unit/mL-1 % ear drops,susp INSTILL 4 DROPS INTO AFFECTED EAR(S) BY OTIC ROUTE 3 TIMES PER DAY 01/05 completed Not Available Not Available Not Available tadalafil 10 mg tablet TAKE ONE TABLET BY MOUTH EVERY DAY NEEDED active Not Available Not Available No t Available Athlete's Foot (terbinafi ne) 1 % topical cream APPLY TO THE AFFECTED AND SURROUNDI NG AREAS OF SKIN BY TOPICAL ROUTE ONCE DAILY 01/25 completed Not Available Not Available Not Available PreviDent 5000 Booster Plus 1.1 % dental paste BEFORE BEDTIME FLOSS AND BRUSH TEETH. SPIT. DON'T RINSE 11/20 completed Not Available Not Available Not Available Vitals Date Recorded Body height Body mass index (BMI) Body weight Oxygen saturation Oxygen saturation in Arterial blood by Pulse oximetry Heart rate Systolic blood pressure Diastolic blood pressure Provider Name and Address Organization Details Last Updated DateTime 2 181.61 cm 29.7 kg/m2 41108.9 5 g 96 % 96 % 70 /min 123 mm[Hg] 80 mm[Hg] Rosalva Melgar MA [facility] 2 11:09:13 Date Recorded Body height Body mass index (BMI) Body weight Heart rate Oxygen saturation Oxygen saturation in Arterial blood by Pulse oximetry Systolic blood pressure Diastolic blood pressure Provider Name and Address Organization Details Last Updated DateTime 3 181.61 cm 28.1 kg/m2 22205.8 4 g 74 /min 98 % 98 % 128 mm[Hg] 88 mm[Hg] Krista Adame Gregorio [facility] 3 10:40:24 Date Recorded Body height Body mass index (BMI) Body weight Oxygen saturation Oxygen saturation in Arterial blood by Pulse oximetry Heart rate Systolic blood pressure Diastolic blood pressure Provider Name and Address Organization Details Last Updated DateTime 4 184.15 cm 28 kg/m2 47894.8 1 g 99 % 99 % 75 /min 129 mm[Hg] 74 mm[Hg] Brian Piña [facility] 4 14:22:06 Date Recorded Body height Heart rate Oxygen saturation Oxygen saturation in Arterial blood by Pulse oximetry Body mass index (BMI) Body weight Systolic blood pressure Diastolic blood pressure Provider Name and Address Organization Details Last Updated DateTime 4 184.15 cm 77 /min 98 % 98 % 28.1 kg/m2 31965.4 g 121 mm[Hg] 77 mm[Hg] Brian Piña [facility] 4 15:01:07 Date Recorded Body height Body mass index (BMI) Body weight Heart rate Systolic blood pressure Diastolic blood pressure Provider Name and Address Organization Details Last Updated DateTime 4 184.15 cm 26.8 kg/m2 90451.4 7 g 87 /min 109 mm[Hg] 88 mm[Hg] [facility] 4 10:52:31 Social History Question Answer Notes LastModified by Organizat ion Details LastModified Time Tobacco Smoking Status Never Smoker 09/07/2205/18/23 Krista Adame Gregorio [facility] 05/18/2023 10:43:12 What Is Your Level Of Alcohol Consumption? Occasional 09/07/22 [email or web address] Information not available 09/07/2022 What Is Your Level Of Caffeine Consumption? Occasional Coffee Daily 01/25/21 Nikita [email or web address] Information not available 01/25/2021 How Much Tobacco Do You Chew? None Information not available 2015 What Type Of Diet Are You Following? REGULAR Information not available 2015 Do You Or Have You Ever Used E-cigarettes Or Vape? Never Used Electronic Cigarettes 01/31/22 , 01/25/21 Jlk Information not available 01/31/2022 Education 4 Year College [employer] Informatio n not available 2015 How Many Days In The Past Year Have You Had A Heavy Drinking Consumption (4+ Female, 5+ Male)? 0 Information not available 08/03/2017 Are There Any Guns Present In Your Home? Yes Information not available 2015 Live Alone Or With Others? With Others Family Information not available 04/12/2019 Patient Has Health Care Proxy Signed And In Chart No 08/08/18 Information not available 2015 Marital Status Single Informatio n not available 2015 Mosquito Repellent Used Routinely Yes Information not available 2015 What Was The Date Of Your Most Recent Tobacco Screening? 05/18/2023 09/07/22CJ 05/18/23MV [email or web address] Information not available 05/18/2023 How Many Children Do You Have? 0 Information not available 2015 Seat Belts Used Routinely Yes Information not available 2015 Smoke Alarm In Home Yes Information not available 2015 Do You Or Have You Ever Used Smokeless Tobacco? Never Used Smokeless Tobacco 09/07/22CJ [email or web address] Information not available 09/07/2022 How Much Tobacco Do You Smoke? No [email or web address] Information not available 05/19/2020 General Stress Level Low Information not available 2015 Do You Use Any Illicit Or Recreational Drugs? No Information not available 01/31/2022 Do You Use Sunscreen Routinely? Yes Information not available 2015 How Many Years Have You Smoked Tobacco? 0 Information not available 05/12/2020 How Many Days In The Past Year Have You Consumed 5 Or More Drinks? 2 Information not available 01/31/2022 Sex: Male Functional Status None recorded. Mental Status None recorded. Family History Relationship Description Onset Age of this Age Resolved Age Notes LastModified by Organization Details LastModified Time Paternal Grandfather Heart disease pkeough Not available 2018 10:18:02 Mother Diabetes mellitus [email or web address] Not available 2018 10:18:12 Notes:No cancer, CAD or DM i n family Medical History Condition Response OTHER Y Immunizations Vaccine Type Date Status Note Provider Name and Address Organization Details Recorded Time Influenza, split virus, quadrivalent, PF 09/07/20 22 cancelled patient objection Lauren Meeks NP [address] [place] [address], [phone], [facility] 09/07/2022 11:11:01 Td (adult), 2 Lf tetanus toxoid, preservative free, adsorbed 09/07/20 22 cancelled patient objection Lauren Meeks NP [address] [place] [address], [phone], [facility] 09/07/2022 11:11:01 Tdap 03/05/20 24 completed Lauren Meeks NP [address] [place] [address], [phone], [facility] 03/05/2024 15:42:59 COVID-19 vaccine, vector-nr, rS-Ad26, PF, 0.5 mL 07/18/20 21 completed Not Available [facility] 06/28/2023 20:20:04 Past Encounters Encounter ID Performer Location Encounter Start Date Encounter Closed Date Diagnosis/Indication Diagnosis SNOMED-CT Code Diagnosis ICD10 Code Diagnosis Note [id number] INDY Dominguez, [facility] [place], OFFICE [address] [place] [address] 2015 11:11:53 2015 11:34:40 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 [id number] INDY Dominguez, [facility] [place], OFFICE [address] [place] [address] 09/01/2015 13:43:32 09/01/2015 14:06:02 Backache 144913425 M54.9 Advised like no fx and if so healed by now likely muscle strain aggravated by weight lifting. Advised ice/heat, rest. F/U prn Abdominal pain 59352119 R10.11 Unclear etiology previous work-up neg for same sxs with no recent change will check lfts Adult heal th examination 929751732 Z00.00 Insomnia 681842848 G47.0 0 c/w ambien will try valerian root [id number] INDY Dominguez, [facility] [place], OFFICE [address] [place] [address] 02/09/2016 09:43:41 02/09/2016 10:10:34 Adult health examination 553453865 Z00.00 see Risk Assessment and Lifestyle Change Counseling section above Counseling 323845628 Z71 .9 Insomnia 505522144 G47.0 0 stable c/w ambien [id number] INDY Dominguez, [facility] [place], OFFICE [address] [place] [address] 04/01/2016 10:53:35 04/01/2016 11:11:17 Panic disorder without agoraphobia 94272526 F41.0 worse anxiety, panic attacksdis cussed tx options including SSRI, therapyagr eed to short term tx with benzounder stands that will not c/t prescribef /u prn >50% of 25 min appt spent cc/c. [id number] INDY Dominguez, [facility] [place], OFFICE [address] [place] [address] 06/08/2016 14:58:28 06/08/2016 15:18:22 Upper abdominal pain 00804789 R10.11 Chronic RUQ fullness with new pain.nml LFTs 08/2015f/u dependent on results [id number] INDY Dominguez, [facility] [place], OFFICE [address] [place] [address] 07/07/2016 09:13:14 07/07/2016 09:38:16 Insomnia 424482358 G47.00 stable c/w ambien Right uppe r quadrant pain 581370797 R10.11 chronic but worsening RUQ painnml us, xraylabs normalpain persists with worseningw ill get CT [id number] Kaley Roman D.OMonalisa ROSENBAUM, [facility] [place], OFFICE [address] [place] [address] 04/26/2017 13:36:22 04/26/2017 14:30:53 Abdominal pain 60604873 R10.9 no red flags, normal examsuppor tive cared/c fish oil [id number] Shana Croft MD , [facility] [place], OFFICE [address] [place] [id number] 06/07/2017 09:25:16 06/07/2017 10:09:12 Insomnia 563094650 G47.00 He needs a refill of his zolpidem. I did give him 1 month supply/no refills, but told him that he needs to see his PCP. He was not really very interested in doing this and said he has been on this medication forever. I explained to him that his sleep issues need to be reevaluate d and that his PCP wants to see him before any other refills are given. Otitis externa 9346248 H 60.91 He is ears look pretty good today but he gets a recurrent right ear pain about twice a month lasting 7-10 days and has had this for a good 10 years. He has been using an old ophthalmic drops that a previous doctor gave him and apparently things improve after 2 days of drops.At this time the diagnosis is really not clear because he used some drops and feels much better. There are no signs of an outer ear infection. He mentioned that he thought may be it was related to exercise and sweating in the ears. He never gets itching.Pl an: For now we will go with Cortispori n otic but if this does not work by day 2 of his next episode he needs to come in and we need to make sure there is not more of a cellulitis type issue. I say this because he also mentioned that it often hurts just behind right ear. Apparently it always gets better and has never required antibiotic pills.If the drops is working you probably need to use it until the episode is completely resolved and you have no pain and then maybe one extra day. If in the future you get episodes that do not respond to this drops, please come to see us. Please try to come early enough so that we can see what the problem looks like. [id number] Lauren Meeks NP , [facility] [place], OFFICE [address] [place] [address] 08/03/2017 11:29:21 08/03/2017 11:52:41 Insomnia 973774423 G47.00 stable c/w ambienRF sent electronic ally Shoulder pain 33027072 M 25.511 R shoulder pain with adduction x monthsnot limiting activity but pain persistswi ll refer for PT [id number] INDY Dominguez, [facility] [place], OFFICE [address] [place] [address] 01/05/2018 14:56:06 01/05/2018 15:20:29 Low back pain [id number] M54.5 x months with worsening recentlyon ly brief relief with PTwill refer to PSSsee if responds better to prescripti on strength NSAID. [id number] INDY Dominguez, [facility] [place], OFFICE [address] [place] [address] 08/08/2018 09:30:43 08/08/2018 09:59:37 Right upper quadrant pain [id number] R10.11 abd pain persists but intermitte ntneg us/ ct scanhad nml lfts last yearwill repeat and do lipids [id number] INDY Dominguez, [facility] [place], OFFICE [address] [place] [address] 04/03/2019 10:31:49 04/03/2019 12:31:01 Shoulder pain 57036167 M25.511 ongoing R shoulder pain with recent worseningh eavy weight liftingwil l get xrayreferr al to Sports Med [id number] INDY Dominguez, [facility] [place], OFFICE [address] [place] [address] 04/12/2019 09:40:43 04/12/2019 10:24:50 Insomnia 188317406 G47.00 zolpidem not as helpful but still helpswill try melatonin 10 mg in addition to zolpidemf/ u prn Adult heal th examination 405778019 Z00.00 see Risk Assessment and Lifestyle Change Counseling section above Counseling 533138686 Z71 .9 Depression screening 171 460757 Z13.89 2 out of 27depressi on screening tool administer ed, entered into emr, scored and discussed, time greater than 7.5 minutes Venereal d isease screening 682811417 Z11.3 check below [id number] Sanket Riley MD Sports Medicine, [address] [place] [address] 04/29/2019 14:06:25 04/29/2019 14:43:43 Shoulder pain 71152131 M25.511 Jesús is a 33-year-ol d male with 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 He also has some discomfort in his right trapezius region over the last week which I feel is likely myofascial in origin. I reviewed this diagnosis with him today in the office as well as discussing treatment. I advised conservati ve management with relative rest avoiding benchpress , press, and other weightlift ing activities which cause pain. I also advised the as needed use of NSAIDs. We discussed the possibilit y of a acromiocla vicular joint corticoste roid injection as well as possible surgical interventi on in the future. He will plan a follow-up with me in 8 weeks reevaluati on. 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 He has done well over the last 8 weeks and is having much less pain today. He no longer has any pain with daily activity and does not currently of pain over the acromiocla vicular joint to palpation on exam. We discussed gradually resume a normal weightlift ing but avoiding activities which cause discomfort . We discussed the possibilit y of a corticoste roid injection within the acromiocla vicular joint or surgery in the future. At this point he will plan to gradually ramp up his activities and she will follow-up with me in 8 weeks reevaluati on if he has persistent pain or symptoms. [id number] Kaley ROSENBAUM, [facility] [place], [address] [facility] [address] [address] 10/16/2019 10:23:35 10/16/2019 10:53:28 Pain of left hand [id number] 76030 M79.642 s/p fall 3 weeks ago, has pain with extension of 4th and 5th digits over dorsal ulnar aspect of L hand. NO swelling, no bony tenderness . Mildly decreased hand supervisor purification 4/5 on L side. Xray to rule out fracture but I think unlikely based on exam. Likley sprain vs tendon inflammati on from fall. Advised ibuprofen and ice. Advised if not improving occupation al therapy, referral placed, pt will call if he wants to start therapy. Anxiety disorder 6478646 06 F41.9 Pt reports had increased anxiety at work, took two 0.5 mg clonazepam s, then went out for drinks had 2 alcoholic beverages with co-workers , and then drove home and was stopped for OUI. [place] PAT checked, pt prescribed ambien, was prescribed lorazepam #2 tabs prior to spinal injection by Dr Billingsley pt states he has not taken them. Chart reviewed, Clonazepam last prescribed February 2018 for PRN use for anxiety. Counseled on sedation and side effects of benzodiaze pines. Advised he cannot drive after taking a benzodiaze pine. Advised he also cannot drive after taking a zolpidem, or after drinking. Reviewed increased risk for sedation and respirator y depression if benzodiaze pines are taken with alcohol or with opiates. Advised not to take a benzodiaze pine with alcohol. Completed his DMV paperwork stating no medical condition restrictin g ability to drive, but cannot drive after taking benzodiaze pine or zolpidem. Will alert PCP to incident. spent over 30 min with patient- over 50% of the time discussing management of underlying condition, counseling and education [id number] Lauren Meeks NP , [facility] [place], OFFICE [address] [place] [address] 11/26/2019 07:55:38 11/26/2019 08:23:25 Anxiety 35284585 F41.9 reviewed incident with recent OUIpt does not use benzos regularly- last prescribed clonazepam 03/12/2018 with #20 and still has a few pills leftdo not have concern about his judgement with medication administra tion. Do think this was an oversight. Will write letter as requested. [id number] Lauren Meeks, INDY , [facility] [place], OFFICE [address] [place] [address] 05/12/2020 16:00:22 05/12/2020 16:27:54 Foot pain 80173384 M79.672 large cyst proximal footgettin g larger, affecting activitywi ll refer to ortho for evaluation Ganglion cyst 49112891 M 67.40 L index fingersmal lwill c/t monitor- not limiting now Insomnia 974310011 G47.0 0 zolpidem not as helpful but still helpswill try melatonin 10 mg in addition to zolpidemf/ u prn [id number] Cathie Hugo . , [facility] [place], OFFICE [address] [place] [address] 05/19/2020 08:45:51 05/19/2020 09:30:21 Suspected COVID-19 728915145 Z03.818 Patient to be 3 or 4 days of headache, fatigue, congestion and change in sense of taste and smell, could be allergies but need to rule out coronaviru s infection. Self quarantine , rest, fluids, refer to [facility] for testing.ca ll as needed. [id number] ED Botello , [facility] [place], OFFICE [address] [place] [address] 05/26/2020 10:51:38 05/26/2020 11:16:42 Exposure to SARS-CoV-2 991995634 Z20.828 Patient with covid-like symptoms back in December and was around other who were covid positive.D iscussed risks vs benefits of having covid antibody testing doneHe would be agreeable to donate plasma if positive for antibodies . Will order lab draw.Tamiko mensah, discussed that regardless of results, he must still comply with usual covid prevention strategies .He will check with insurance company about out of pocket costs and will call us to cancel test if too expensiveO therwise follow-up with results [id number] Mk Jorge MD , [facility] [place], OFFICE [address] [place] [address] 08/19/2020 15:05:10 08/20/2020 12:15:23 Fatigue 07807831 R53.83 Advised daily exercise.T ry eliminatin g zolpidem for sleep, cutting dose in half or taking earlier to see if fatigue improves.H ealthy eating Insomnia 916629034 G47.0 0 Ways to improve sleep quality. Avoid watching TV or working while in bed. Exercise early in the morning may help to increase energy and calm prior to sleeping later on in the day. Please avoid caffeinate d beverages and alcohol in the evening. Go to bed and get up at the same time every day. Do not try to force yourself to sleep. If you can't sleep, get out of bed and try again later. Keep your bedroom dark, cool, and quiet. Avoid looking at phones or reading devices (? e -books? ) that give off light before bed. Try relaxation techniques that focus on relaxing all the muscles in your body 1 by 1. Hypercholesterolemia 136 26265 E78.00 Patient had elevated cholestero l level in December. [id number] Cathie Arias . MD ROSENBAUM, [facility] [place], OFFICE [address] [place] [address] 09/29/2020 10:27:29 09/29/2020 15:28:55 Persistent cough 759167244 R05 It seems that there is a component of allergies but recent socializat ion with people who do not regularly live with him and there is concern about coronaviru s infection. Will set him up for coronaviru s testing and try azelastine nose spray for congestion . Follow-up as needed. [id number] Natalie Hartley DNP , [facility] [place], OFFICE [address] [place] [address] 01/01/2021 13:22:22 01/04/2021 13:26:18 Hypercholesterolemia 40573477 E78.00 Patient had elevated cholestero l level in December. Eat a variety of fruit and vegetable servings every day. Eat a variety of grain products every day. Include whole-grai n foods. Eat fish at least 2 times each week. Stay at a healthy weight by balancing the amount of calories you eat with the activity you do every day. If you want to lose weight, increase your activity level to burn more calories than you eat. Eat foods low in saturated fat and trans fat. Lean meats and meat alternativ es like beans or tofu Fish, vegetables , beans, and nuts Nonfat and low-fat dairy products Polyunsatu rated or monounsatu rated fats, like canola and olive oils, to replace saturated fats, such as butter Limit the amount of trans fat you eat. Read labels! Limit sodium, less than 2400 MGS a day. Limit alcohol intake to 2 drinks a day for men and 1 drink a day for women. Limit drinks and foods with added sugar. Primary er ectile dysfunction 442927688 N52.9 Discussed side effects of tadalafil. Declines offers of counseling Tinea corporis 04027409 B35.4 Has been using Clortrimaz ole with no relief Will try terbinafin e Refer to Derm Low back pain 952932265 M54.5 Previously followed by PSS. Wishes to be seen, needs new referral [id number] ED Dean , [facility] [place], OFFICE [address] [place] [address] 01/25/2021 13:27:05 01/27/2021 07:53:46 Pre-surgery evaluation 074357988 Z01.818 Patient is scheduled for L ankle surgery on 02/10/[address] Godinez. Patient is of relatively low risk for cardiac or pulmonary complicati ons in the tiffany-opera tive period given the nature of the surgery. His only risk factor is that his BMI is considered to be overweight . Labs- n/a EKG- n/a Hold meds- n/a Overweight 222626552 E66 .3 BMI 29.2 Anxiety disorder 6512276 06 F41.9 Mood stable, no meds [id number] ED Botello , [facility] [place], OFFICE [address] [place] [address] 02/11/2021 16:21:50 02/15/2021 07:50:12 Pain in left foot 1257349103 74876 M79.672 Patient had two cystic-typ e lesions removed left foot on 02/10 with [facility]. Continues with significan t pain and inability to ambulate, requesting crutches. This CABLE ENGINEER will coordinate ordering crutches either through [facility] or [facility] and will reach out again to the patient tomorrow 02/12. Continue percocet 5/325 four times daily as prescribed per [facility], but can alternate with Tylenol if needed, not to exceed 4g daily. He has a follow-up this upcoming MondayFebruary 16 with [facility]. [id number] ED Botello , [facility] [place], OFFICE [address] [place] [address] 03/17/2021 13:35:05 03/22/2021 14:01:04 Nasal congestion 69590672 R09.81 Patient with a few days of nasal congestion , intermitte nt (rare) cough, itchy eyes. Overall he does not feel ill. He does report a loss of taste, hard to say if related to the congestion or not. No loss of smell. No fevers. He does work as a parole officer, has not been vaccinated against covid19. No known exposures at work. Difficult to differenti ate seasonal allergies vs. covid (especiall y given his report of loss of taste). I do recommend that he stay home from work today and obtain covid19 testing tomorrow (although unfortunat paul he does seem like he will have to go to work). If he does go to work, strongly encouraged regular mask use, frequent hand washing, avoiding touching any beverages/ food products directly, avoiding touching face/mouth . For supportive care, continue daily Zyrtec. Take Benadryl 50 mg at bedtime to help with nighttime symptoms. Continue oxymetazol ine 1-2 times daily for three days only and then discontinu e. After that, continue saline spray or Neti pot. Take warm steam showers to loosen mucus. Continue to drink plenty of fluids such as water. Monitor for new/worsen ing symptoms such as fevers, chills, worsening cough, congestion , shortness of breath, chest pain, diarrhea, nausea, vomiting, etc. Will arrange for covid test tomorrow. [id number] Lauren Meeks NP , [facility] [place], OFFICE [address] [place] [address] 07/20/2021 15:02:46 07/28/2021 08:11:02 Mixed hyperlipidemia 029652241 E78.2 will check labs Insomnia 724340892 G47.0 0 stableuses nightlydis cussed concern of ongoing use but he feels only way to sleep Immunization advised 310 509471 Z71.9 discussed pts concerns re covid vaccine [id number] Jenae Garcia er, CABLE ENGINEER , [facility] [place], OFFICE [address] [place] [address] 08/31/2021 16:16:46 08/31/2021 20:36:18 Nasal congestion 03753873 R09.81 3 days nasal congestion with lack of smell and taste ( closed eyes, coffee grounds under nose, unable to smell). Vaccinated wtih J&J in june. No other symptoms. Pt states nasal spray, zyrtec, neti pot, sudafed not helpful. no fever, no sinus tenderness to palpation. Likely viral vs allergies. given lack of smell or taste concer for covid -- test for covid. Advised to quarantine . If results negative and feeling better can end quarantine -- advised switch to claritin, humidifier , steam in the shower, retry sudafed.-- if worsening, fever, severe pain call office [id number] Nadine Grove MD , [facility] [place], OFFICE [address] [place] [address] 09/21/2021 16:05:41 09/21/2021 17:49:46 Nasal congestion 40465190 R09.81 Loss of se nse of smell 23517366 R43.0 URI symptoms x 3 weeks including loss of taste/smel l x 3 weeks and chills with history of Covid exposure, is presumed Covid despite his negative Covid test on 08/31/21. Presumably , he is not infectious now (3+ weeks after symptoms began). Will repeat Covid test today. Trial flonase for loss of smell. [id number] Lauren Meeks NP , [facility] [place], OFFICE [address] [place] [address] 11/30/2021 14:57:25 12/01/2021 14:48:04 Insomnia 106356045 G47.00 stableuses nightlydis cussed concern of ongoing use but he feels only way to sleepRF sent Mixed hyperlipidemia 267 909074 E78.2 Trigs 120, HDL 78, LDL 169LDL a bit high- goal < 160 and closer to 130v. good HDLkeep up with health diet, exerciseno meds at this time [id number] Lauren Meeks NP , [facility] [place], OFFICE [address] [place] [address] 01/31/2022 15:48:55 02/04/2022 09:23:54 Abdominal pain 84695711 R10.11 no red flagsua negslight discomfort LLQ- suspect constipati on, bowel changewill keep well hydrated, keep diet rich in fiberwill let me know if sxs do not improve or worsen [id number] Lauren Meeks NP , [facility] [place], OFFICE [address] [place] [address] 09/07/2022 10:59:58 09/07/2022 15:22:33 Active or passive immunization 183696784 Z23 Venereal d isease screening 320591926 Z11.3 check below Fatigue 24767192 R53.83 persistent fatiguelas t T was 484 in een by consultati on for possible tx with T - requesting labs belowaware not certain insurance will cover [id number] Lauren Meeks NP , [facility] [place], OFFICE [address] [place] [address] 05/18/2023 10:30:29 05/18/2023 12:24:08 Primary erectile dysfunction 477019816 N52.9 does not take daily, prnbo good Insomnia 859971080 G47.0 0 has used ambien for yearsdoes have some am grogginess wants to see if any better with temazepam - will do short course- do not take with ambien- pt understand Palpitations 03504827 R0 0.2 occasional usually at restno cp, sob, dizzinessw ill c/t monitor [id number] Lauren Meeks NP , [facility] [place], OFFICE [address] [place] [address] 11/20/2023 14:09:08 11/20/2023 16:54:13 Insomnia 554801002 G47.00 has used ambien for yearsovera ll stable Adult heal th examination 124947563 Z00.00 see Risk Assessment and Lifestyle Change Counseling section above Depression screening 171 499114 Z13.31 depression screening tool administer edneg phq 9mood is good Screening for alcohol abuse 651461436 Z13.39 Alcohol use screening tool administer edaudit 3 Active or passive immunization 100974899 Z23 [id number] Lauren Meeks NP , [facility] [place], OFFICE [address] [place] [address] 03/05/2024 14:54:21 03/05/2024 17:21:58 Active or passive immunization 177860542 Z23 Anxiety disorder 4889370 06 F41.9 for flyingwill try alprazolam 0.25 mg 1-2 tabs prior to flight [id number] Lauren Meeks NP , [facility] [place], OFFICE [address] [place] [address] 10/03/2024 10:42:49 10/03/2024 11:54:36 Insomnia 864486060 G47.00 has used ambien for yearsovera ll stable Influenza vaccination declined 963543027 Z28.21 Lumbar radiculopathy 128 505834 M54.16 chronic L sided back, leg pain painseen by [facility], Dr Chowdary in past with little improvemen tlast MRI T worsened sxsseeking another opinion - referral to Dr Persaud Health Concerns Section Related Observation LastModified by Organization Detai ls LastModified Time None Recorded Concern Status LastModified by Organization Details LastModified Time None Recorded Advance Directives Directive None Recorded Payers Encounter Date Sequence Insurance Name Policy Number Policy Carrasco Covered Member ID Carrasco Member ID Guarantor Name 09/07/2022 1 MEDICAID-[facility] PRIOR TO 01/28/2023 - [facility] (MEDICAID) Jaya Mojica [id number] Jaya Mojica 05/18/2023 1 [facility] Jaya Mojica [id number] Jaya Mojica 11/20/2023 1 [facility] Jaya Mojica [id number] Jaya Mojica 03/05/2024 1 [facility] Jaya Mojica [id number] Jaya Mojica 10/03/2024 1 [facility] Jaya Mojica [id number] Jaya Mojica Notes Date Note Type Note Provider Name and Address Organization Details Recorded Time 09/07/2022 text/html Jaya is here t o discuss testosterone therapy - seeing Raquel MADRID- consultantfeels fatigue- always sleepy and tiredis able to exercise. Lauren Meeks NP [address] [place], [address], [facility] 09/07/2022 11:24:42 05/18/2023 text/html seen [facility]- had MRI- doing PT for discc/t struggle sleep does have some morning groggy with ambien- can try temazepam? friend does well with itoccasional palpitation- no chest pain - exercises v regularly- ? if related to J&J vaccine Lauren Meeks NP [address] [place], [address], [facility] 05/18/2023 11:23:30 11/20/2023 text/html Physical Exam/MaleReported bypatient.PHAPatient is here for a Wellness Visit. He describes his health status as good. Patient's health is the same as last year.Risk Assessment and Lifestyle Change Counseling 18-50Reported bypatient.Coronary Artery Disease Risk Assesment:Family History of Coronary Artery Disease(PGF); No personal history of diabetes; No history of peripheral vascular disease, AAA, or carotid disease; No personal history of coronary artery disease Lung Cancer Risk Assessment:Never smoked Cognitive/Behavioral Risk Assessment:No personal history of mental illness; No family history of mental illness Diet:Counseled about eating a diet low in trans and saturated fats and high in fiber, fruits and vegetables; Discussed the value of a Mediterranean diet, and eating more fruits and vegetables Exercise counseling:Discussed the importance of daily physical activity; Discussed the importance of weight bearing exercise Safety:Counseled about protecting skin from the sun and lowering the risk of skin cancer; Counseled about avoiding excessive and unsafe alcohol intake Lauren Meeks NP [address] [place], [address], [facility] 11/20/2023 14:42:56 03/05/2024 text/html does not fly dante t well- has upcoming long flight- going to [place] to visit [id number] hrs and then 4 hrstakes ambien for sleepanxious about flying Lauren Meeks NP [address] [place], [address], [facility] 03/05/2024 15:44:56 10/03/2024 text/html here for sciatic pain- ongoing x 4 yrsL sided leg painhas injection in spine - unsure if helpedsaw other doctor - Dr Rodriguez- piriformis disorder- had injections no improvementdid PT before which made it worsesxs- lower L back ache, with firing burning pain down to foot.saw Dr Persaud in past Lauren Meeks, CABLE ENGINEER [address] [place], [address], [facility] 10/03/2024 11:21:06
== END 2024-12-12 11:51 | disposition home or self-care (01) ==
PROVIDERS: PCP Family Medicine; Visit Provider Physician Assistant
DX: M54.16 Radiculopathy, lumbar region (principal)
CPT/HCPCS: 99204

== ENCOUNTER → 2024-12-12 11:03 | Outpatient (BNVA) | payer OTHER, SELFPAY | PROVIDERS: PCP Family Medicine; Visit Provider Physician Assistant | DX: M54.16 Radiculopathy, lumbar region (principal) | CPT/HCPCS: 99202 ==